=== PATIENT | female | born 1985 | race Two or more races ===

== ENCOUNTER 2020-02-01 06:39 | Emergency (ER) | payer OTHER ==
[~2020-02-01] VITALS: Ht 152.4 cm; Wt 49.4 kg
[2020-02-01 06:43] VITALS: Ht 152.4 cm; Wt 49.4 kg
[2020-02-01 07:38] LABS: BASOPHIL % 0.7 % (0-2); PLATELET COUNT 310 x10^3mcL (130-400); RED CELL DISTRIBUTION WIDTH 12.9 % (11.5-14.5)
[2020-02-01 07:46] LABS: CALCIUM 8.5 mg/dL (8.5-10.1); CARBON DIOXIDE 28.1 mmol/L (21-32); CHLORIDE SERUM 101 mmol/L (98-107); CREATININE SERUM 0.9 mg/dL (0.6-1.0); GFR1 > 60 mL/min; GLUCOSE SERUM 145 mg/dL (74-106); SODIUM SERUM 136 mmol/L (136-145)
[2020-02-01 07:51] LABS: ALBUMIN 3.5 g/dL (3.4-5.0); ALKALINE PHOSPHATASE 40 U/L (46-116); ALT/SGPT 34 U/L (14-59); AST/SGOT 24 U/L (15-37); TOTAL PROTEIN, SERUM 7.7 g/dL (6.4-8.2)
[2020-02-01 08:40] LABS: BILIRUBIN TOTAL 0.17 mg/dL (0.20-1.00)
[2020-02-01 09:03] VITALS: BP 99/69
== END 2020-02-01 09:13 | disposition home or self-care (01) ==
LOC: ED 06:39
PROVIDERS: Emergency Medicine
DX: R55 Syncope and collapse (principal); Z88.6 Allergy status to analgesic agent; Z90.89 Acquired absence of other organs
CPT/HCPCS: 36415